=== PATIENT | male | born 1945 | race Caucasian/White ===

== ENCOUNTER 2024-02-17 13:32 | Emergency (ER) | payer OTHER, MEDICARE ==
[~2024-02-17] VITALS: Ht 182.9 cm; Wt 103.4 kg
[2024-02-17] MEDS ORDERED: ACETAMINOPHEN 500 MG TAB PO ONE (15:15)
[2024-02-17 16:11] VITALS: BP 143/97
== END 2024-02-17 16:11 | disposition home or self-care (01) ==
LOC: ED 13:32
DX: S20.219A Contusion of unspecified front wall of thorax, initial encounter (principal); V49.9XXA Car occupant (driver) (passenger) injured in unspecified traffic accident, initial encounter; Z88.8 Allergy status to other drugs, medicaments and biological substances
CPT/HCPCS: 71046; 99284; A9270